=== PATIENT | male | born 1960 | race Caucasian/White ===

== ENCOUNTER 2019-05-30 19:26 | Emergency (ER) | payer OTHER ==
[~2019-05-30] VITALS: Ht 188 cm; Wt 74.8 kg
[~2019-05-30 19:26] MED LIST: CLONAZEPAM 0.50.5 M1; EFFEXOR XR150 MG; IBUPROFEN 800800 MG PO; MOBIC7.5 M1 PO; NORCO 5-325 TA1 EACH PO; PREDNISONE 10 M10 M1 PO; ROBAXIN500 MG PO
[2019-05-30] MEDS ORDERED: BUSPIRONE HCL10 MG PO (19:35)
[2019-05-30 20:00] LABS: ABSOLUTE BASOPHILS 0.1 thou/uL (0.0-0.2); ABSOLUTE EOSINOPHILS 0.1 thou/uL (0.0-0.7); ABSOLUTE LYMPHOCYTES 1.6 thou/uL (0.8-5.3); ABSOLUTE MONOCYTES 0.8 thou/uL (0.0-1.2); ABSOLUTE NEUTROPHILS 6.1 thou/uL (1.6-8.1); EOSINOPHILS 0.9 %; HEMATOCRIT 43.8 % (42.0-52.0); HEMOGLOBIN 14.8 gm/dL (14.0-18.0); LYMPHOCYTES 18.5 %; MCHC 33.9 g/dL (28.0-37.0); MCV 88.6 fL (80.0-100.0); MONOCYTES 9.2 %; MPV 6.7 fl. (7.2-11.1); NUCLEATED RBCS 0 /100WBC; PLATELET COUNT* 253 thou/uL (150-400); POLYS 70.4 %; RBC 4.94 mil/uL (4.50-6.00); RDW-CV 15.3 % (10.5-14.5); WBC 8.7 thou/uL (4.0-11.0)
[2019-05-30 20:07] LABS: CREATININE 1.1 mg/dL (0.6-1.3); POTASSIUM 4.4 mmol/L (3.5-5.1)
[2019-05-30 20:11] LABS: ALBUMIN 3.3 g/dL (3.4-5.0); TOTAL BILIRUBIN 0.2 mg/dL (<0.1-1.0); TOTAL PROTEIN 7.2 g/dL (6.4-8.2)
[2019-05-30 20:30] LABS: URINE BILIRUBIN NEGATIVE (Negative); URINE BLOOD TRACE (Negative); URINE CLARITY CLEAR; URINE COLOR YELLOW; URINE GLUCOSE-RANDOM NEGATIVE (Negative); URINE KETONES NEGATIVE (Negative); URINE LEUKOCYTES-REFLEX NEGATIVE (Negative); URINE NITRITE-REFLEX NEGATIVE (Negative); URINE PROTEIN NEGATIVE (Negative); URINE SPECIFIC GRAVITY >= 1.030 (1.005-1.030); URINE UROBILINOGEN 0.2 E.U./dl (0.2-1.0)
[2019-05-30] MEDS ORDERED: BENTYL 20 MG TA20 M1 PO (21:36)
[2019-05-30] MEDS ORDERED: CIPRO500 MG PO (21:36)
[2019-05-30] MEDS ORDERED: FLAGYL500 M1 PO (21:36)
[2019-05-30 21:50] VITALS: BP 145/84
== END 2019-05-30 21:51 | disposition home or self-care (01) ==
LOC: M.ERS 19:26
PROVIDERS: Nurse Practitioner Family
DX: K52.9 Noninfective gastroenteritis and colitis, unspecified (principal); M54.9 Dorsalgia, unspecified; G89.29 Other chronic pain; F41.9 Anxiety disorder, unspecified; F32.9 Major depressive disorder, single episode, unspecified; Z88.0 Allergy status to penicillin